=== PATIENT | male | born 1980 | race Hispanic/Latino ===

== ENCOUNTER 2020-10-13 06:29 | Outpatient (CLI) | payer BC ==
--- NOTE | 2020-10-13 07:58 | XRay Report ---
LEFT HIP 3 VIEWS INDICATION / CLINICAL INFORMATION: SCIATICA, UNSPECIFIED SIDE COMPARISON: None available. FINDINGS: BONES and JOINT(S): No acute fracture or subluxation. There is mild osteoarthritis of the hips. SOFT TISSUES: No significant abnormality. ADDITIONAL FINDINGS: None. IMPRESSION: Mild osteoarthritis of the hips. Signer Name: Richard Hairston MD Signed: 10/13/2020 7:54 AM Workstation Name: [email or web address]
--- NOTE | 2020-10-13 07:59 | XRay Report ---
LUMBAR SPINE 3 VIEWS INDICATION: Low back pain. COMPARISON: No relevant prior imaging study available. FINDINGS: VERTEBRAE: No acute fracture. Normal alignment. DISC SPACES: Mild discogenic degenerative changes are seen from L3 through S1. FACET JOINTS: There is facet hypertrophy at L5-S1. SOFT TISSUES: No significant abnormality. ADDITIONAL FINDINGS: No additional significant findings. IMPRESSION: Mild lumbar spondylosis. Signer Name: Richard Hairston MD Signed: 10/13/2020 7:55 AM Workstation Name: [email or web address]
== END 2020-10-13 06:30 | disposition home or self-care (01) ==
LOC: XRAY 06:29
PROVIDERS: ATTEND Internal Medicine
DX: M16.12 Unilateral primary osteoarthritis, left hip (principal); M47.814 Spondylosis without myelopathy or radiculopathy, thoracic region
CPT/HCPCS: 72100